=== PATIENT | female | born 1970 | race Caucasian/White ===

== ENCOUNTER 2017-06-15 06:30 | Emergency (ER) | payer MEDICARE ==
[~2017-06-15] VITALS: Ht 147.3 cm; Wt 47.6 kg
[2017-06-15] MEDS ORDERED: PANTOPRAZOLE SO40 MG PO (07:28)
[2017-06-15] MEDS ORDERED: PREDNISONE5 MG PO (07:28)
[2017-06-15] MEDS ORDERED: EFFEXOR XR 3737.5 MG PO (07:28)
== END 2017-06-15 10:33 | disposition left against medical advice (07) ==
LOC: ER 06:30
DX: R20.0 Anesthesia of skin (principal)
CPT/HCPCS: 99282